=== PATIENT | female | born 1945 | race Caucasian/White ===

== ENCOUNTER 2019-01-09 10:35 | Day surgery (SDC) | payer OTHER ==
[~2019-01-09 10:35] MED LIST: AMLODIPINE-OLM1 EAC3; ANASTROZOLE1 MG; COZAAR50 MG; DORZOLAMIDE-TIM10 ML; FENOFIBRATE50 MG; LATANOPROST 0.7.5 ML; LIPITOR20 MG; LOTENSIN HCT 11 EACH; PROTONIX40 M1; SYNTHROID112 MCG; TENORMIN100 M1
[2019-01-10] MEDS ORDERED: HYOSCYAMINE0.125 M1 SL (10:00)
[2019-01-10] MEDS ORDERED: OXYC1TAB9 PO (10:01)
[2019-01-10] MEDS ORDERED: PROTONIX40 MG PO (10:01)
== END 2019-01-10 08:00 | disposition home or self-care (01) ==
LOC: O/R 10:35 → CIR.AMB 10:35 → SURH 10:35 → SURG 10:35 → EDSTATUS 10:45 → SURH 15:32 → O/R 15:32 → SURG 18:00 → CIR.AMB 01-10 08:00 → SURH 01-10 12:08 → O/R 01-10 12:08
DX: K38.8 Other specified diseases of appendix (principal); E03.8 Other specified hypothyroidism; I11.9 Hypertensive heart disease without heart failure